=== PATIENT | female | born 1940 | race Caucasian/White ===

== ENCOUNTER 2025-04-25 12:40 | Emergency (ER) | payer MEDICARE, OTHER ==
[~2025-04-25] VITALS: Ht 167.6 cm; Wt 74.0 kg
[~2025-04-25 12:40] MED LIST: ASPIRIN EC325 MG PO; AZITHROMYCIN250 MG PO; B COMPLEX WITH1 EAC1 PO; C-500500 MG PO; CARDIZEM CD120 MG PO; COZAAR25 MG PO; GINKGO BILOBA60 M1 PO; GUMMI BEAR MUL1 EACH PO; LEVAQUIN750 MG PO; LEVOTHYROXINE100 MCG PO; LEVOTHYROXINE88 MCG PO; LOSARTAN POTASS25 MG PO; MAGNESIUM250 MG PO; METFORMIN HCL500 MG PO; NORCO 5-325 TA1 EACH PO; OXYBUTYNIN CHLOR5 M1 PO; POTASSIUM99 M3 PO; PRAMIPEXOLE D0.25 MG PO; SIMVASTATIN20 MG PO; SIMVASTATIN40 MG PO; SUPER CALCIUM1 EACH PO; SUPER OMEGA-31000 MG PO; TYLENOL EXTRA500 MG PO; VITAMIN B-12500 MC2 PO; VITAMIN B-6100 MG PO; VITAMIN D325 MC2 PO; VITAMIN E180 M2 PO; WARFARIN SODIUM3 MG PO; WARFARIN SODIUM6 MG PO
[2025-04-25 12:58] LABS: BASOPHILS 0.6 % (0.1-1.2); EOSINOPHILS 1.0 % (0.7-5.8); LYMPHOCYTES 27.8 % (19.3-51.7); MCH 29.9 PG (25.6-32.2); MCHC 33.3 g/dL (32.2-35.5); MCV 89.7 fL (79.4-94.8); MONOCYTES 9.0 % (4.7-12.5); NEUTROPHILS 61.4 % (34.0-71.1); RBC 4.45 M/uL (3.93-5.22)
[2025-04-25] MEDS ORDERED: SODIUM CHLORIDE 0.9% 1,000 ML IV PRN (13:00)
[2025-04-25] MEDS ORDERED: DILT-XR120 MG PO (13:07)
[2025-04-25 13:10] LABS: INR 3.17 (0.80-1.30); PROTIME 31.5 Sec (11.2-14.2)
[2025-04-25 13:25] LABS: ALT (SGPT) 23.0 U/L (14-59); AST (SGOT) 16.0 U/L (15-37); GLOMERULAR FILTRATION RATE,EST 63.0 mL/min (>60); PROTEIN, TOTAL 6.7 g/dL (6.4-8.2); UREA NITROGEN 19.0 mg/dL (7-18)
[2025-04-25 14:56] VITALS: BP 161/68
--- NOTE | 2025-04-28 16:01 | EKG ---
[facility] [address] [facility] [place] [id number] Signed Sinus rhythm with premature atrial complexes Low voltage QRS Borderline ECG No previous ECGs available Confirmed by Brenda George MD () on 04/28/2025 4:01:26 PM Electronically Signed By: BRENDA GEORGE MD 04/28/25 1601 PATIENT NAME: KATHARINE JIMENEZ Electrocardiogram DATE OF : 40 PHYSICIAN: BRENDA GEORGE MD REPORT #: [id number] REPORT IS CONFIDENTIAL AND NOT TO BE RELEASED WITHOUT AUTHORIZATION
== END 2025-04-25 14:58 | disposition home or self-care (01) ==
LOC: ED 12:40
PROVIDERS: Emergency Medicine
DX: R55 Syncope and collapse (principal); I48.0 Paroxysmal atrial fibrillation; E11.9 Type 2 diabetes mellitus without complications; I10 Essential (primary) hypertension; Z86.73 Personal history of transient ischemic attack (TIA), and cerebral infarction without residual deficits; Z79.84 Long term (current) use of oral hypoglycemic drugs; Z79.890 Hormone replacement therapy; Z79.01 Long term (current) use of anticoagulants; Z79.899 Other long term (current) drug therapy
CPT/HCPCS: 36415; 70450; 70496; 70498; 70551; 71045; 80053; 84443; 84484; 85025; 85610; 85730; 93005; 93010; 99284-25; Q9967